=== PATIENT | female | born 1965 | race Caucasian/White ===

== ENCOUNTER 2022-02-01 17:00 | Outpatient (CLI) | payer BC | END 2022-02-01 17:01 | disposition home or self-care (01) | LOC: SLEEPLAB 17:00 | PROVIDERS: ATTEND Student in an Organized Health Care Education/Training Program | DX: G47.33 Obstructive sleep apnea (adult) (pediatric) (principal); R53.83 Other fatigue | CPT/HCPCS: 95810 ==

== ENCOUNTER 2022-04-25 14:00 | Outpatient (CLI) | payer BC | END 2022-04-25 14:01 | disposition home or self-care (01) | LOC: SLEEPLAB 14:00 | PROVIDERS: ATTEND Student in an Organized Health Care Education/Training Program | DX: G47.33 Obstructive sleep apnea (adult) (pediatric) (principal); R53.83 Other fatigue; R06.83 Snoring; G47.10 Hypersomnia, unspecified; E66.9 Obesity, unspecified; I49.3 Ventricular premature depolarization; Z68.30 Body mass index [BMI] 30.0-30.9, adult | CPT/HCPCS: 95811 ==